=== PATIENT | male | born 1995 | race Caucasian/White ===

== ENCOUNTER 2017-02-19 06:36 | Day surgery (SDC) | payer BC ==
--- NOTE | 2017-02-19 07:12 | PCM.PREANE ---
Preanesthetic Assessment - Anesthesia/Transfusion/Family Hx Anesthesia History: Prior Anesthesia Without Reaction Family History of Anesthesia Reaction: No Transfusion History: No Prior Transfusion(s) - Review of Systems General: No Symptoms Pulmonary: No Symptoms Cardiovascular: No Symptoms Gastrointestinal: No symptoms Neurological: No Symptoms Other: Reports: None - Physical Assessment Height: 1.8 m Weight: 83.007 kg ASA Class: 2 Mental Status: Alert & Oriented x3 Airway Class: Mallampati = 1 Dentition: Reports: Normal Dentition Thyro-Mental Finger Breadths: 3 Mouth Opening Finger Breadths: 3 ROM/Head Extension: Full Lungs: Clear to auscultation, Normal respiratory effort Cardiovascular: Regular Rate, Regular Rhythm - Allergies Allergies/Adverse Reactions: Allergies Allergy/AdvReac Type Severity Reaction Status Date / Time No Known Drug Allergies Allergy Other Verified 02/18/17 08:14 - Blood Blood Available: No - Anesthesia Plan Pre-Op Medication Ordered: None - Acknowledgements Anesthesia Type Planned: General Anesthesia Pt an Appropriate Candidate for the Planned Anesthesia: Yes Alternatives and Risks of Anesthesia Discussed w Pt/Guardian: Yes Pt/Guardian Understands and Agrees with Anesthesia Plan: Yes PreAnesthesia Questionnaire Musculoskeletal History: Reports: Fracture (left thumb) - Past Surgical History Head Surgeries/Procedures: Reports: None Musculoskeletal Surgical History: Reports: Other (see below) Other Musculoskeletal Surgeries/Procedures:: hx surgical repair of fx ankle with plate and screws - SUBSTANCE USE Tobacco Use Within Last Twelve Months: Smokeless Tobacco (chew one can every 3- 4 days) Recreational Drug Use History: No - HOME MEDS Home Medications: Home Meds Acetaminophen/HYDROcodone [[place] 325-5 MG] 1 tab PO ASDIRECTED PRN 02/18/17 [ History] - CURRENT (IN HOUSE) MEDS Current Meds: Current Medications Hydrocodone Bitart/Acetaminophen ([place] 325-5 Mg) 1 tab PO Q4H PRN PRN Reason: Pain Bupivacaine HCl/Epinephrine Bitart (Marcaine 0.25%/Epinephrine 1:200,000) 10 ml INJECT ONETIME ONE Stop: 02/19/17 08:01 Lactated Ringer's (Ringers, Lactated) 1,000 mls @ 125 mls/hr IV ASDIRECTED CHERI Cefazolin Sodium/Dextrose 2 gm (/ Premix) 50 mls @ 100 mls/hr IV ONETIME ONE Stop: 02/19/17 08:29
[2017-02-19] MEDS ORDERED: Lidocaine 2% 5 ML SDV ONE (07:21)
[2017-02-19] MEDS ORDERED: Ondansetron 4 MG/2 ML SDV ONE (07:21)
[2017-02-19] MEDS ORDERED: Propofol 200 MG/20 ML SDV ONE (07:21)
[2017-02-19] MEDS ORDERED: Midazolam 1 MG/ML 2 ML SDV ONE (07:22)
[2017-02-19] MEDS ORDERED: fentaNYL 250 MCG/5 ML SDV ONE (07:22)
[2017-02-19] MEDS ORDERED: Bupivacaine 0.25%/EPINEPHrine 1:200,000 10 ML SDV ONE (07:43)
[2017-02-19] MEDS ORDERED: Lactated Ringers 1,000 ML IV SCH (08:00)
[2017-02-19] MEDS ORDERED: ceFAZolin 2 GM in Premix Bag 1 BAG IV ONE (08:00)
[2017-02-19] MEDS ORDERED: Bupivacaine 0.25%/EPINEPHrine 1:200,000 10 ML SDV INJECT ONE (08:00)
[2017-02-19] MEDS ORDERED: ceFAZolin 1 GM Vial ONE (08:07)
[2017-02-19] MEDS ORDERED: Acetaminophen/HYDROcodone 325-5 MG Tab PO PRN (08:14)
[2017-02-19] MEDS ORDERED: fentaNYL 100 MCG/2 ML SDV IVPUSH PRN (08:24)
[2017-02-19] MEDS ORDERED: diphenhydrAMINE 50 MG/ML SDV ONE (08:31)
--- NOTE | 2017-02-19 09:01 | PCM.OPNOTE ---
- General Post-Op/Procedure Note Date of Surgery/Procedure: 02/19/17 Operative Procedure(s): closed reduction percutaneous pin fixation of the left thumb proximal phalanx fracture. Pre Op Diagnosis: left thumb proximal phalanx fracture Post-Op Diagnosis: Same Anesthesia Technique: General LMA, Local Primary Surgeon: [facility] [employer] Paraprofessional: Concepción Chacon Complications: None Condition: Good
[2017-02-19] MEDS ORDERED: Ketorolac 30 MG/ML SDV IVPUSH ONE (09:03)
[2017-02-19 15:10] VITALS: BP 103/68
--- NOTE | 2017-02-24 12:57 | CR ---
EXAMINATION: Left thumb HISTORY: Fixation COMPARISON: None TECHNIQUE: 4 images provided FINDINGS/IMPRESSION: Operative control films demonstrate 2 pins fixating a proximal first phalanx fr acture. Position and alignment appear near anatomic.
--- NOTE | 2017-02-25 17:53 | OR ---
SURGEON: JEANIE JONES MD DATE OF PROCEDURE: 02/19/2017 PREOPERATIVE DIAGNOSIS: Left thumb proximal phalanx fracture. POSTOPERATIVE DIAGNOSIS: Left thumb proximal phalanx fracture. PROCEDURE PERFORMED: Closed reduction and percutaneous pin fixation of the left thumb proximal phalanx fracture. PACKAGE WRAPPER: None. ANESTHESIA: General LMA with local. INDICATIONS: Mr. Tejada is a 21-year-old gentleman, who unfortunately has a left thumb proximal phalanx fracture. This is inherently unstable. Risks and benefits of percutaneous pin fixation were discussed with him and he was in agreement to proceed. Risks were including, but not limited to, bleeding, infection, damage to underlying or overlying structures, possible need for future interventions and possible scarring. PROCEDURE IN DETAIL: After informed consent was obtained and placed on the chart, the patient was brought to the operating theater and laid in supine position. After adequate general anesthetic was obtained, the area was prepped and draped and a time-out was completed to confirm side and site. The fluoroscopy was then used to confirm reduction of the thumb fracture and then two 0.45 K-wires were placed in a crossed fashion over the fracture segment. Post reduction films and post pinning films were taken to confirm appropriate position. The K-wires were then trimmed and Jurgan's Balls were placed to the distal aspect. The patient was then placed in a thumb spica splint. He tolerated this well. All counts of needles were correct at the end of the case. FOLLOWUP INSTRUCTIONS: The patient will see us in clinic in 10 to 14 days, sooner if any problems, questions, or concerns. HEGGTHE / MODL /[id number]
== END 2017-02-19 11:05 | disposition home or self-care (01) ==
LOC: MW.SDS 06:36
PROVIDERS: ATTEND Plastic Surgery
DX: S62.512A Displaced fracture of proximal phalanx of left thumb, initial encounter for closed fracture (principal); Z72.0 Tobacco use
CPT/HCPCS: 26727; 76000; A9270; J0690; J1200; J1885; J2250; J2405; J3010; J7120; 01820; J2704